=== PATIENT | male | born 1965 | race Caucasian/White ===

== ENCOUNTER 2020-12-29 06:39 | Emergency (ER) | payer BC ==
[~2020-12-29] VITALS: Ht 177.8 cm; Wt 90.9 kg
[~2020-12-29 06:39] MED LIST: LEVOTHYROXINE PO; NKDA
[2020-12-29 06:57] VITALS: TEMP 97.7
[2020-12-29 07:22] LABS: BASO # 0.2 (0.0-0.2); BASO % 0.8 % (0.0-2.0); EOS # 0.2 (0.0-0.7); GRAN # 18.2 (1.4-6.5); GRAN % 76.2 % (42.2-75.2); LYMPH # 3.7 (1.2-3.4); LYMPH % 15.7 % (20.0-51.0); MEAN CELL VOLUME 87 fl (80.0-100.0); MEAN CORPUSCULAR HGB CONC 33 g/dl (33.0-37.0); MEAN PLATELET VOLUME 10.8 fl (7.4-10.4); MONO # 1.2 (0.1-0.6); PLATELET COUNT 295 K/mm3 (130-400); RED BLOOD COUNT 6.48 M/mm3 (4.20-5.60)
[2020-12-29 07:29] LABS: ALBUMIN 4.9 gm/dL (3.5-5.0); BILIRUBIN,TOTAL 1.6 mg/dL (0.0-1.0); CALCIUM 10.1 mg/dL (8.4-10.2); CREATININE, serum 0.95 (0.66-1.25); POTASSIUM 4.5 mmol/L (3.4-5.0); TOTAL PROTEIN 8.5 gm/dL (6.4-8.2)
[2020-12-29 07:50] LABS: HEMATOCRIT 56.2 % (42.0-52.0); HEMOGLOBIN 18.7 g/dl (13.5-18.0); MEAN CORPUSCULAR HEMOGLOBIN 29 pg (27.0-31.0)
[2020-12-29 08:08] LABS: GASTROCCULT POSITIVE; pH GASTRIC CONTENTS 3
[2020-12-29 08:14] LABS: COLLECTION METHOD CLEAN CATCH
[2020-12-29 08:20] LABS: PH 5 (5-8); SQUAMOUS EPITHELIAL None Seen /hpf; URINE APPEARANCE Clear; URINE BACTERIA None Seen /hpf; URINE BILIRUBIN Negative (NEGATIVE); URINE BLOOD Negative (NEGATIVE); URINE COLOR Straw; URINE GLUCOSE 3+ (NEGATIVE); URINE KETONE 2+ (NEGATIVE); URINE LEUKOCYTE ESTERASE Negative (NEGATIVE); URINE NITRATE Negative (NEGATIVE); URINE PROTEIN(semi-quant) Negative (NEGATIVE); URINE RBC 0-2 /hpf; URINE UROBILINOGEN Negative (NEGATIVE)
[2020-12-29] MEDS ORDERED: NOVOLOG FLEX100 U/ML SQ (09:23)
[2020-12-29] MEDS ORDERED: BASAGLAR K100 UNIT/1 SQ (09:24)
[2020-12-29] MEDS ORDERED: LEVOXYL0.175 MG PO (09:25)
[2020-12-29] MEDS ORDERED: JARDIANCE10 PO (09:25)
[2020-12-29] MEDS ORDERED: TRULICITY3 MG/0.5 M SQ (09:26)
[2020-12-29] MEDS ORDERED: COZAAR 25MG25 MG/TAB PO (09:28)
[2020-12-29] MEDS ORDERED: CRESTOR20 MG PO (09:29)
[2020-12-29] MEDS ORDERED: GLUCOPHAGE XR500 M1 PO (09:29)
[2020-12-29 10:56] VITALS: BP 127/76; PULSE 114
== END 2020-12-29 11:29 | disposition short-term general hospital (02) ==
LOC: COL.ER 06:39
PROVIDERS: Emergency Medicine
DX: E11.10 Type 2 diabetes mellitus with ketoacidosis without coma (principal); K92.2 Gastrointestinal hemorrhage, unspecified; E03.9 Hypothyroidism, unspecified; Z79.890 Hormone replacement therapy; Z79.4 Long term (current) use of insulin
CPT/HCPCS: C9113; J0780; J1200; J1815; J1885; J2405; J2765; J7120; Q9967

== ENCOUNTER 2023-04-30 18:04 | Emergency (ER) | payer BC ==
[~2023-04-30] VITALS: Ht 177.8 cm; Wt 109.1 kg
[~2023-04-30 18:04] MED LIST changes: +BASAGLAR K100 UNIT/1 SQ; +COZAAR 25MG25 MG/TAB PO; +CRESTOR20 MG PO; +GLUCOPHAGE XR500 M1 PO; +JARDIANCE10 PO; +LEVOXYL0.175 MG PO; +NOVOLOG FLEX100 U/ML SQ; +TRULICITY3 MG/0.5 M SQ
[2023-04-30 18:15] VITALS: TEMP 97.4
[2023-04-30 19:08] LABS: BASO # 0.1 K/mm3 (0.0-0.2); BASO % 0.7 % (0.0-2.0); EOS # 0.3 K/mm3 (0.0-0.7); EOS % 4.2 % (0.0-4.0); GRAN # 4.9 K/mm3 (1.4-6.5); GRAN % 67.5 % (42.2-75.2); HEMATOCRIT 44.6 % (42.0-52.0); HEMOGLOBIN 15.9 g/dl (13.5-18.0); LYMPH # 1.6 K/mm3 (1.2-3.4); LYMPH % 21.5 % (20.0-51.0); MEAN CELL VOLUME 82 fl (80.0-100.0); MEAN CORPUSCULAR HEMOGLOBIN 29 pg (27-31); MEAN CORPUSCULAR HGB CONC 36 g/dl (33.0-37.0); MEAN PLATELET VOLUME 11.1 fl (7.4-10.4); MONO # 0.4 K/mm3 (0.1-0.6); MONO % 5.8 % (1.7-9.3); PLATELET COUNT 204 K/mm3 (130-400); RED BLOOD COUNT 5.43 M/mm3 (4.20-5.60); REDCELL DISTRIBUTION WIDTH-CV 12.4 % (11.5-14.5)
[2023-04-30 19:22] LABS: ALANINE AMINOTRANSFERASE 28 U/L (0-55); ALBUMIN 3.6 gm/dL (3.5-5.0); ALKALINE PHOSPHATASE 91 U/L (40-150); ANION GAP 11 mmol/L (7-16); AST,SGOT 19 U/L (5-34); BILIRUBIN,TOTAL 0.5 mg/dL (0.2-1.2); BLOOD UREA NITROGEN 14 mg/dL (8-26); CARBON DIOXIDE 23 mmol/L (22-29); CHLORIDE 107 mmol/L (98-107); CREATININE, serum 0.87 mg/dL (0.72-1.25); GLUCOSE 196 mg/dL (70-99); LIPASE 10 U/L (8-78); POTASSIUM 3.5 mmol/L (3.5-4.5); SODIUM 141 mmol/L (136-145); TOTAL PROTEIN 6.7 gm/dL (6.2-8.1)
[2023-04-30 19:30] LABS: TROPONIN-I < 0.010 ng/mL (0.00-0.033)
[2023-04-30 19:38] LABS: ACETONE,SERUM NEGATIVE
[2023-04-30 20:38] LABS: COLLECTION METHOD RANDOM VOIDED
[2023-04-30 20:50] LABS: SQUAMOUS EPITHELIAL 0-2 /hpf (0-10); URINE APPEARANCE Clear (CLEAR/HAZY); URINE BLOOD Negative (NEGATIVE); URINE COLOR Yellow (YELLOW); URINE GLUCOSE 3+ (NEGATIVE); URINE KETONE TRACE (NEGATIVE); URINE NITRATE Negative (NEGATIVE); URINE PROTEIN(semi-quant) 1+ (NEGATIVE); URINE UROBILINOGEN 0.2 E.U/dL (0.2-1.0); URINE WBC 0-2 /hpf (0-2)
[2023-04-30 20:51] LABS: MUCOUS Present (NOT PRESENT)
[2023-04-30 21:05] VITALS: BP 154/80; PULSE 76
== END 2023-04-30 21:08 | disposition home or self-care (01) ==
LOC: COL.ER 18:04
PROVIDERS: Emergency Medicine
DX: R51.9 Headache, unspecified (principal); R11.2 Nausea with vomiting, unspecified
CPT/HCPCS: J1200; J1885; J2405; J2765; J7030

== ENCOUNTER 2023-11-20 22:45 | Inpatient (IN) | payer BC | END 2023-11-23 12:00 | disposition home or self-care (01) | DRG 639 | LOC: COL.ER 22:45 → ICU 11-21 04:07 → MEDICAL 11-22 18:00 | PROVIDERS: ADMIT Internal Medicine | DX: E11.10 Type 2 diabetes mellitus with ketoacidosis without coma (principal); I10 Essential (primary) hypertension; R33.9 Retention of urine, unspecified; E78.5 Hyperlipidemia, unspecified; E03.9 Hypothyroidism, unspecified; Z87.442 Personal history of urinary calculi; Z79.4 Long term (current) use of insulin; Z79.890 Hormone replacement therapy; Z79.899 Other long term (current) drug therapy | CPT/HCPCS: 31860; A4314 ==

== ENCOUNTER → 2024-04-24 | Outpatient (CLI) | payer BC | LOC: COL.RAD 13:22 | DX: Z12.2 Encounter for screening for malignant neoplasm of respiratory organs (principal); R91.8 Other nonspecific abnormal finding of lung field; F17.201 Nicotine dependence, unspecified, in remission ==